=== PATIENT | male | born 1955 | race African-American/Black ===

== ENCOUNTER 2022-12-06 09:44 | Emergency (ER) | payer MEDICAID ==
[~2022-12-06] VITALS: Ht 172.7 cm; Wt 70.0 kg
[2022-12-06 10:41] LABS: BASOPHILS % 0.7 % (0.0-2.0); EOSINOPHILS % 0.8 % (0.0-5.0); HEMATOCRIT. 42.7 % (42.0-52.0); HEMOGLOBIN. 14.1 g/dL (14.0-18.0); LYMPHOCYTES % 27.1 % (20.0-50.0); MEAN CORPUSCULAR VOLUME 84.8 fL (80.0-94.0); MEAN PLATELET VOLUME 7.9 fl (7.4-10.4); MONOCYTES % 11.1 % (2.0-8.0); NEUTROPHILS % 60.3 % (40.0-76.0); PLATELET 193 x1000/uL (130-400); RED BLOOD CELL COUNT 5.03 mill/uL (4.7-6.1); RED CELL DISTRIBUTION WIDTH 13.8 % (11.6-14.6)
[2022-12-06 10:52] LABS: CHLORIDE 104 mEq/L (98-107)
[2022-12-06 14:19] LABS: CLARITY URINE CLEAR (CLEAR); COLOR URINE YELLOW (YELLOW); KETONES URINE NEGATIVE (NEGATIVE); LEUKOCYTE ESTERASE URINE NEGATIVE (NEGATIVE); NITRITE URINE NEGATIVE (NEGATIVE); OCCULT BLOOD URINE TRACE (NEGATIVE); PH URINE 8.5 (4.5-8.0); PROTEIN URINE NEGATIVE (NEGATIVE); UROBILINOGEN URINE 0.2 E.U./dL (0.2-1.0)
[2022-12-06] MEDS ORDERED: KETOROLAC 15MG/ML VIAL IV ONE (15:30)
[2022-12-06] MEDS ORDERED: ONDANSETRON HCL 4MG/2ML INJ IV ONE (15:30)
[2022-12-06] MEDS ORDERED: OMEP40CA20 MT (19:34)
[2022-12-06 19:43] VITALS: BP 119/77
== END 2022-12-06 19:43 | disposition home or self-care (01) ==
LOC: ER 09:44
DX: R10.33 Periumbilical pain (principal); R10.11 Right upper quadrant pain; I10 Essential (primary) hypertension
CPT/HCPCS: 36415; 74176; 80053; 81003; 83690; 85025; 93005; 96374; 96375; 99285; J1885; J2405